=== PATIENT | male | born 2000 | race Caucasian/White ===

== ENCOUNTER 2025-08-04 13:57 | Emergency (ER) | payer BC | END 2025-08-04 15:58 | disposition home or self-care (01) | LOC: JD.ED 13:57 | DX: S62.316A Displaced fracture of base of fifth metacarpal bone, right hand, initial encounter for closed fracture (principal); S62.314A Displaced fracture of base of fourth metacarpal bone, right hand, initial encounter for closed fracture; W22.8XXA Striking against or struck by other objects, initial encounter | CPT/HCPCS: 29125; 73120-26-RT; 73120-RT; 99283 ==